=== PATIENT | female | born 1995 ===

== ENCOUNTER 2017-04-23 15:02 | Emergency (ER) | payer BC ==
[2017-04-23 15:10] VITALS: BP 118/76; PULSE 78; RESP 18; TEMP 99.4; O2SAT 100
--- NOTE | 2017-04-23 15:29 | RAD ---
HISTORY: COUGH COMPARISON: None available. TECHNIQUE: Chest PA and lateral FINDINGS: LUNGS: No focal consolidation. Please note that chest x-ray has limited sensitivity for the detection of pulmonary masses. PLEURA: No significant pleural effusion identified. No definite pneumothorax . CARDIOVASCULAR: The cardiomediastinal silhouette appears within normal limits of size. OSSEOUS STRUCTURES: No acute osseous abnormality identified. VISUALIZED UPPER ABDOMEN: Unremarkable. OTHER FINDINGS: None. IMPRESSION: No focal consolidation, significant pleural effusion, or definite pneumothorax identified.
--- NOTE | 2017-04-23 15:45 | C.PDOC ---
History Of Present Illness PERSISTENT TONGUE LESIONS X 1 MO. PS BOTTOM OF TONGUE. NO PAIN, DC, SWELLING. + SMOKER. +FIELD SALES MANAGER COUGH X 3 WEEKS. NO FEVER, SOB EXAM NARD HEENT +CIRCULAR/ANNULAR FLAT LESIONS MULTIPLE B/L SIDES /BOTTOM OF TONGUE. UNABLE TO RUB OFF. NO DEEP ULCERATION. NO BLEED NO TONGUE SWELLING. NO LESIONS DORSAL TONGUE. NO GROSS BUCCAL LESIONS. MDM PT ADVISED NEED TO SEE DENTAL OR ENT FOR POSSIBLE BIOPSY. REFERRAL INFO GIVEN Time Seen by Provider: 04/23/17 15:21 Chief Complaint (Nursing): ENT Problem History Per: Patient History/Exam Limitations: no limitations Onset/Duration Of Symptoms: Days Current Symptoms Are (Timing): Still Present Severity: Moderate Past Medical History Reviewed: Historical Data, Nursing Documentation, Vital Signs Vital Signs: Last Vital Signs Temp 99.4 F 04/23/17 15:04 Pulse 78 04/23/17 15:04 Resp 18 04/23/17 15:04 BP 118/76 04/23/17 15:04 Pulse Ox 100 04/23/17 15:50 - Medical History PMH: Anxiety, Depression Surgical History: No Surg Hx Family History: States: No Known Family Hx - Social History Hx Alcohol Use: Yes Hx Substance Use: Yes - Immunization History Hx Tetanus Toxoid Vaccination: Yes Hx Influenza Vaccination: No Hx Pneumococcal Vaccination: No Review Of Systems Constitutional: Negative for: Fever, Chills ENT: Negative for: Mouth Swelling Respiratory: Positive for: Cough (nonproductive cough). Negative for: Shortness of Breath Skin: Positive for: Lesions (tongue lesions) Physical Exam - Physical Exam Appears: Non-toxic, Other (no acute respiratory distress) Skin: Normal Color, Warm Head: Atraumatic, Normacephalic Eye(s): bilateral: Normal Inspection, PERRL Tongue: No Swelling, Lesions (circular/annular flat lesions multiple in bilateral sides and bottom of tongue, unable to rub off), No Bleeding, Other ( no lesions in dorsal tongue, no gross buccal lesions, no deep ulceration) Neck: Supple Chest: Symmetrical Extremity: Normal ROM Neurological/Psych: Oriented x3, Normal Speech, Normal Cognition, Normal Motor, Normal Sensation ED Course And Treatment O2 Sat by Pulse Oximetry: 100 (RA) Pulse Ox Interpretation: Normal Medical Decision Making Medical Decision Making: Patient has been advised to see dental specialist or ENT for possible biopsy. Referral info has been given to patient. Disposition Counseled Patient/Family Regarding: Diagnosis, Need For Followup, Rx Given, Smoking Cessation - Disposition Referrals: Chin Arthur MD [Staff Provider] - YOUR,DENTIST [Other] Disposition: HOME/ ROUTINE Disposition Time: 15:45 Condition: GOOD Additional Instructions: YOU MUST FOLLOW UP WITH A DENTIST OR ENT SPECIALIST FOR FURTHER EVALUATION OF YOUR ORAL LESIONS. STOP SMOKING IMMEDIATELY. Prescriptions: Mag&Al/Simet/Diphen/Lido [First Magic Mouthwash] 5 ml MM BID #1 kit Forms: [employer] (Slovenian), General Discharge Instructions - Clinical Impression Clinical Impression: Tongue lesion - Scribe Statement The provider has reviewed the documentation as recorded by the Scribe Anisha Hardin Provider Attestation: All medical record entries made by the Scribe were at my direction and personally dictated by me. I have reviewed the chart and agree that the record accurately reflects my personal performance of the history, physical exam, medical decision making, and the department course for this patient. I have also personally directed, reviewed, and agree with the discharge instructions and disposition.
== END 2017-04-23 15:53 | disposition home or self-care (01) ==
LOC: C.ER 15:02
DX: K14.9 Disease of tongue, unspecified (principal)

== ENCOUNTER 2017-08-11 11:23 | Emergency (ER) | payer BC ==
[2017-08-11 11:34] VITALS: BP 118/81; PULSE 86; TEMP 98.7; O2SAT 99
--- NOTE | 2017-08-11 11:52 | C.PDOC ---
History Of Present Illness 22 year old female presents to the ER with a complaint of a nonproductive cough for the past week, associated with a sore throat that radiates to the right ear. Patient has been taking dayquil with no relief. Denies fever. Time Seen by Provider: 08/11/17 11:42 Chief Complaint (Nursing): Shortness Of Breath History Per: Patient History/Exam Limitations: no limitations Onset/Duration Of Symptoms: Days Current Symptoms Are (Timing): Still Present Location Of Pain: None Sick Contacts (Context): None Associated Symptoms: Sore Throat, Cough. denies: Fever Recent travel outside of the [place]: No Past Medical History Reviewed: Historical Data, Nursing Documentation, Vital Signs Vital Signs: Last Vital Signs Temp 98.7 F 08/11/17 11:30 Pulse 86 08/11/17 11:30 Resp 18 08/11/17 12:34 BP 118/81 08/11/17 11:30 Pulse Ox 99 08/11/17 12:51 - Medical History PMH: Anxiety, Bipolar Disorder, Depression Family History: States: Unknown Family Hx - Social History Hx Alcohol Use: Yes Hx Substance Use: No - Immunization History Hx Tetanus Toxoid Vaccination: Yes Hx Influenza Vaccination: No Hx Pneumococcal Vaccination: No Review Of Systems Constitutional: Negative for: Fever ENT: Positive for: Throat Pain Respiratory: Positive for: Cough. Negative for: Sputum Physical Exam - Physical Exam Appears: Well, Non-toxic, No Acute Distress Skin: Normal Color, Warm, Dry Head: Atraumatic, Normacephalic Eye(s): bilateral: Normal Inspection, EOMI Ear(s): Bilateral: Normal Nose: Normal Oral Mucosa: Moist Throat: No Exudate, No Drooling, No Mass, Other (Post nasal drip) Neck: Normal, Supple Chest: Symmetrical, No Tenderness Cardiovascular: Rhythm Regular Respiratory: Normal Breath Sounds, No Accessory Muscle Use, No Rales, No Rhonchi , No Wheezing Gastrointestinal/Abdominal: Soft, No Tenderness Extremity: Bilateral: Atraumatic, Normal Color And Temperature, Normal ROM Neurological/Psych: Oriented x3, Normal Speech Gait: Steady ED Course And Treatment O2 Sat by Pulse Oximetry: 99 (Room air) Pulse Ox Interpretation: Normal Medical Decision Making Medical Decision Making: Patient remained afebrile alert and oriented with stable vital signs during ER evaluation. Patient is stable for discharge. Advised to return if symptoms persist or worsen. Disposition Counseled Patient/Family Regarding: Diagnosis, Need For Followup, Rx Given - Disposition Referrals: Chin Arthur MD [Staff Provider] - Disposition: HOME/ ROUTINE Disposition Time: 11:52 Condition: GOOD Additional Instructions: Rx sent to [facility] Take medications daily Follow up with ENT Instructions: Viral Upper Respiratory Infection, Adult (DC) Forms: [employer] (Tongan) - POA Present On Arrival: None - Clinical Impression Clinical Impression: URI (upper respiratory infection) - PA / ASSESSMENT ANALYST / Resident Statement MD/DO has reviewed & agrees with the documentation as recorded. - Scribe Statement The provider has reviewed the documentation as recorded by the Scribe Jaguar Silva All medical record entries made by the Scribe were at my direction and personally dictated by me. I have reviewed the chart and agree that the record accurately reflects my personal performance of the history, physical exam, medical decision making, and the department course for this patient. I have also personally directed, reviewed, and agree with the discharge instructions and disposition.
[2017-08-11 12:34] VITALS: RESP 18
== END 2017-08-11 12:35 | disposition home or self-care (01) ==
LOC: C.ER 11:23
DX: J06.9 Acute upper respiratory infection, unspecified (principal)

== ENCOUNTER 2018-02-07 19:25 | Emergency (ER) | payer BC ==
[2018-02-07 20:10] VITALS: BP 119/79; PULSE 69; RESP 20; TEMP 98.6; O2SAT 100
--- NOTE | 2018-02-07 20:37 | C.PDOC ---
History Of Present Illness 22 year old female presents to the ED c/o pain to the right lower molar area for the past 4 days. Patient denies fever, chills, nausea, vomit, injury, fall, trauma, facial swelling, SOB. Time Seen by Provider: 02/07/18 20:13 Chief Complaint (Nursing): Dental Pain History Per: Patient History/Exam Limitations: no limitations Onset/Duration Of Symptoms: Days (4) Current Symptoms Are (Timing): Still Present Quality: Positive for: "Pain" Recent travel outside of the [place]: No Additional History Per: Patient Past Medical History Reviewed: Historical Data, Nursing Documentation, Vital Signs Vital Signs: Last Vital Signs Temp 98.6 F 02/07/18 20:07 Pulse 69 02/07/18 20:07 Resp 20 02/07/18 20:07 BP 119/79 02/07/18 20:07 Pulse Ox 100 02/07/18 20:07 - Medical History PMH: Anxiety, Bipolar Disorder, Depression Surgical History: No Surg Hx Family History: States: Unknown Family Hx - Social History Hx Alcohol Use: Yes Hx Substance Use: No - Immunization History Hx Tetanus Toxoid Vaccination: Yes Hx Influenza Vaccination: No Hx Pneumococcal Vaccination: No Review Of Systems Constitutional: Negative for: Fever, Chills ENT: Positive for: Mouth Pain. Negative for: Mouth Swelling, Throat Swelling Respiratory: Negative for: Cough, Shortness of Breath Gastrointestinal: Negative for: Nausea, Vomiting Neurological: Negative for: Headache Physical Exam - Physical Exam Appears: Non-toxic, No Acute Distress Skin: Normal Color, Warm, Dry Head: Atraumatic, Normacephalic Eye(s): bilateral: Normal Inspection Ear(s): Bilateral: Normal Oral Mucosa: Moist Tongue: No Swelling Lips: No Swelling Teeth: Other (impacted right lower molar ) Gingiva: Swelling (right lower moalr area) Throat: Normal, No Erythema, No Exudate Neck: Normal ROM, Supple Neurological/Psych: Oriented x3, Normal Speech, Normal Cognition Gait: Steady ED Course And Treatment O2 Sat by Pulse Oximetry: 100 (ON RA) Pulse Ox Interpretation: Normal Progress Note: Patient was advised to make a Dentist appointment for further evaluation and care. Disposition Counseled Patient/Family Regarding: Diagnosis, Need For Followup - Disposition Referrals: Dental office, Dentist [Other] Disposition: HOME/ ROUTINE Disposition Time: 20:34 Condition: STABLE Additional Instructions: Please follow up with a dentist Take medications as directed Return to ER if worse Prescriptions: Clindamycin [Cleocin] 300 mg PO Q6 #20 cap Ibuprofen [Motrin] 600 mg PO Q6H #20 tab Instructions: Impacted Tooth (DC) Forms: [employer] (Brazilian), Work Excuse - Clinical Impression Clinical Impression: Impacted molar - PA / [employer] / Resident Statement MD/DO has reviewed & agrees with the documentation as recorded. - Scribe Statement The provider has reviewed the documentation as recorded by the Scribe Enrique Wilkinson All medical record entries made by the Neyibtab were at my direction and personally dictated by me. I have reviewed the chart and agree that the record accurately reflects my personal performance of the history, physical exam, medical decision making, and the department course for this patient. I have also personally directed, reviewed, and agree with the discharge instructions and disposition.
== END 2018-02-07 20:48 | disposition home or self-care (01) ==
LOC: C.ER 19:25
DX: K01.1 Impacted teeth (principal)